=== PATIENT | female | born 1945 | race African-American/Black ===

== ENCOUNTER 2017-07-31 15:40 | Emergency (ER) | payer MEDICARE, MEDICAID ==
[~2017-07-31] VITALS: Ht 162.6 cm; Wt 68.0 kg
[2017-07-31] MEDS ORDERED: Methocarbamol 750mg tab ORAL ONE (16:30)
[2017-07-31] MEDS ORDERED: IBUPROFEN600 MG ORAL (16:39)
[2017-07-31] MEDS ORDERED: ROBAXIN-750750 MG PO (16:39)
[2017-07-31 16:49] VITALS: BP 191/81
--- NOTE | 2017-07-31 21:43 | Emergency Room Report ---
History of Present Illness General Chief Complaint: Pain Source: Patient Present Illness HPI The patient is a 72-year-old female presenting for left hip and left calf pain after falling 3 days prior. She states that she tripped on the stairs. She denies hitting her head or loss of consciousness. Pain is an 8/10 dull ache and does not radiate from these areas. Worse with movement. She denies any numbness or tingling. She denies any other symptoms including N, V, VALENTIN, dizziness, blurred vision, SOB, CP Allergies: Coded Allergies: No Known Allergies (Unverified , 07/31/17) Patient History Past Medical History: see triage record Pertinent Family History: none Reviewed Nursing Documentation: PMH: Agreed, PSxH: Agreed Nursing Documentation-PMH Past Medical History: No Stated History Review of Systems All Other Systems: negative except mentioned in HPI Physical Exam Vital Signs Date Time Temp Pulse Resp B/P (MAP) Pulse Ox O2 Delivery O2 Flow Rate FiO2 07/31/17 15:45 98.1 111 20 191/81 99 Room Air Sp02 EP Interpretation: reviewed, normal General Appearance: no apparent distress, alert, GCS 15, non-toxic Head: normocephalic, atraumatic Eyes: bilateral eye normal inspection, bilateral eye PERRL ENT: hearing grossly normal, normal pharynx, no angioedema, normal voice Musculoskeletal: normal inspection, normal range of motion, pelvis stable, calf tenderness - L calf, tender - TTP over the L lateral hip. Neurologic: alert, oriented x3, responsive, motor strength/tone normal, sensory intact, speech normal Psychiatric: judgement/insight normal, memory normal, mood/affect normal, no suicidal/homicidal ideation Skin: normal color, no rash, warm/dry, well hydrated Lymphatic: no adenopathy Medical Decision Making PA Attestation Dr. Nettles is my supervising physician. Patient management was discussed with my supervising physician Diagnostic Impression: Primary Impression: Muscle strain Additional Impression: Contusion Qualified Codes: S70.02XA - Contusion of left hip, initial encounter ER Course The patient is a 72-year-old female presenting for left hip and left calf pain after falling Ddx considered include but not limited to sprain/strain, fracture, contusion PE: NAD Normal gait. There is tenderness to palpation over the left lateral hip. Pelvis is stable. Full active range of motion. No edema or ecchymosis. Left calf: There is tenderness to palpation. No edema. No skin changes. CT scan of pelvis is unremarkable To be discharged with prescription for Motrin and Robaxin. ER precautions are given CT/MRI/US Diagnostic Results CT/MRI/US Diagnostic Results : Imaging Test Ordered: CT pelvis Impression No acute findings Last Vital Signs Date Time Temp Pulse Resp B/P (MAP) Pulse Ox O2 Delivery O2 Flow Rate FiO2 07/31/17 16:49 98.1 70 20 191/81 99 Room Air Status: improved Disposition: HOME, SELF-CARE Condition: Improved Scripts Methocarbamol* (ROBAXIN-750*) 750 Mg Tablet 750 MG PO TID, #21 TAB 0 Refills Prov: TUAN COE 07/31/17 Ibuprofen* (MOTRIN*) 600 Mg Tablet 600 MG ORAL Q8H Y for For Pain, #30 TAB 0 Refills Prov: TUAN COE 07/31/17 Patient Instructions: Contusion, [id number] Additional Instructions: I discussed my findings with the patient. All questions and concerns have been answered. Treatment and medication compliance have been addressed. I advised the patient that they need to follow up with PMD in 3-5 days. Return to ED if symptoms worsen, new symptoms arise, or if needed for any reason. Patient verbalized understanding of discharge instructions. TUAN COE Jul 31, 2017 21:43
--- NOTE | 2017-08-01 10:38 | Diagnostic Imaging Report ---
Indication: Pelvic pain and trauma Technique: Continuous helical transaxial imaging of the pelvis was obtained from the iliac crest to the pubic symphysis. Coronal 2-D reformats were also obtained. Study obtained in a Siemens sensation [address] Intravenous non-ionic contrast was administered. Total Dose length Product (DLP): [address] Dose Index Volume (CTDIvol): 12.68, 0.25 mGy Comparison: None Findings: No definite fracture or malalignment identified. The hips and sacroiliac joints appear normal in alignment. Vacuum phenomenon narrowing of the intervertebral discs in the lower part of the lumbar spine noted. Mild facet hypertrophy also noted. Small amount of free fluid is noted in the pelvis. The uterus is noted. The uterus appears prominent especially for given age. Consider ultrasound evaluation in nonemergent gynecology consultation. Few diverticula noted in the colon. Impression: No acute injury identified. Degenerative changes of the lower lumbar spine. Diverticulosis of the colon. Prominent size of the uterus. This could be on the basis of underlying fibroid or other pathology. Consider ultrasound evaluation and gynecologic consultation. The CT scanner at [facility] is accredited by the [employer] and the scans are performed using dose optimization techniques as appropriate to a performed exam including Automatic Exposure control.
== END 2017-07-31 16:52 | disposition home or self-care (01) ==
LOC: EDBD 16:00 → EMR 16:00
DX: S76.012A Strain of muscle, fascia and tendon of left hip, initial encounter (principal); S86.112A Strain of other muscle(s) and tendon(s) of posterior muscle group at lower leg level, left leg, initial encounter; S70.02XA Contusion of left hip, initial encounter; S80.12XA Contusion of left lower leg, initial encounter; W01.0XXA Fall on same level from slipping, tripping and stumbling without subsequent striking against object, initial encounter; Y92.89 Other specified places as the place of occurrence of the external cause; K57.30 Diverticulosis of large intestine without perforation or abscess without bleeding
CPT/HCPCS: 72192; 99284